=== PATIENT | male | born 2000 | race Caucasian/White ===

== ENCOUNTER 2019-04-20 09:44 | Emergency (ER) | payer SELFPAY ==
[2019-04-20 10:33] VITALS: BP 146/83; PULSE 67; RESP 16; TEMP 36.6; O2SAT 99; BMI 28.7
[2019-04-20] MEDS: dexamethasone 10 mg/mL INJ IM (15:26)
[2019-04-20] MEDS: ketorolac 30 mg/mL INJ IM (15:26)
[2019-04-20 15:27] VITALS: BP 111/68; PULSE 66; RESP 14; TEMP 36.6; O2SAT 98
--- NOTE | 2019-04-20 15:35 | W.ED.BACK ---
HPI - Back Pain/Injury General: Chief Complaint: Back Pain/Injury Stated Complaint: BACK PAIN Time Seen by Provider: 04/20/19 14:55 Source: patient Mode of arrival: ambulatory Limitations: no limitations History of Present Illness: MD elicited complaint: back pain Onset (ago): week(s) (2) Timing: constant Similar Symptoms Previously: Yes Quality: burning and spasming Location: lumbar spine Radiation: none Exacerbating factors: movement Relieving factors: none Associated symptoms: Reports no associated symptoms; Deny abdominal pain, arthralgias, chills, change in bowel habits, difficulty walking, dysuria, fatigue, fecal incontinence, fever(s), numbness, tingling/numbness/burning or weakness Work related injury: No Review of Systems Const: Denies: fever, chills or fatigue Eyes: Denies: change in vision ENMT: Denies: throat pain Card: Denies: chest pain or palpitations Resp: Denies: shortness of breath, productive cough, non-productive cough, wheezing, stridor or pain on inspiration GI: Denies: abdominal pain, fecal incontinence or change in bowel habits : Denies: flank pain, difficulty urinating or painful urination Musc: Reports: back pain Skin/Breast: Denies: rash Neuro: Denies: headache, numbness in extremities, weakness in extremities, changes in sensation, lack of coordination, difficulty walking, frequent falls, dizziness, vertigo, confusion or behavioral changes Psych: Denies: anxiety, suicidal ideation or homicidal ideation PFSH ED PFSH: Statuses (acute, chronic, etc) shown below reflect problem list status as previously entered and may not be historically accurate Social History Smoking and tobacco status: never smoked Physical Exam Const: COMMON NORMALS: no apparent distress and no limitations HENMT: COMMON NORMALS: normocephalic and head/scalp atraumatic HEAD & SCALP: normocephalic and atraumatic FACE & SINUS: normal facial exam Neck/C-Spine: COMMON NORMALS: full ROM and no lymphadenopathy Resp: COMMON NORMALS: normal respiratory effort, no retractions, no use of accessory muscles and clear to auscultation bilaterally AUSCULTATION: clear to auscultation bilaterally Cardio: COMMON NORMALS: regular rate and regular rhythm RATE: regular rate RHYTHM: regular rhythm : COMMON NORMALS: Yes no CVA tenderness BLADDER/KIDNEY EXAM: Yes no CVA tenderness Back/Pelvis: COMMON NORMALS: no CVA tenderness LUMBAR SPINE/LOWER BACK: Yes pain with ROM and Yes lumbar spinal tenderness (diffuse no midline tenderness) Extremity: COMMON NORMALS: normal to inspection Psych: COMMON NORMALS: mental status grossly normal Skin: COMMON NORMALS: no rashes or lesions noted GENERAL SKIN EXAM: no rashes or lesions noted Course ED course: Pt is well appearing non toxic and in no distress. CAUTI considered for low back sanchez. Pt has no urinary symptoms no penile discharge. Pt denies any trauma or injury. Pt denies fever, histroy of cancer or hypertension denies IV drug abuse. Pt states he lifts heavy items at work and feels like he strained a muscle. Pt has no referred pain no numbness or tingling no loss of bowel or bladder. Pts physical exam findings are c/w lumbar strain. I will give patient Decadron and toradol here in the ER and send home with NSAIDS and muscle relaxer. REturn preautions advised and home care reveiwed. Vital Signs: Vital signs: Vital Signs Temperature 97.9 F 04/20/19 15:45 Pulse Rate 76 04/20/19 15:45 Respiratory Rate 14 04/20/19 15:45 Blood Pressure 110/70 04/20/19 15:45 Pulse Oximetry 98 04/20/19 15:45 Discharge Plan Discharge Patient Disposition: Home, Self-Care Clinical Impression: Strain of lumbar region Qualifiers: Encounter type: initial encounter Qualified Code(s): S39.012A - Strain of muscle, fascia and tendon of lower back, initial encounter Condition: Stable Prescriptions: New cyclobenzaprine 10 mg tablet 10 mg PO BID PRN (Reason: muscle spasm) Qty: 14 RF: 0 naproxen sodium 550 mg tablet 550 mg PO BID Qty: 14 RF: 0 Discharge Diet: Advance as tolerated Discharge Activity: Limit activity as instructed Patient Instructions: Low Back Strain (ED) Activity Restrictions/Additional Instructions: Limited Bending or twisting and no lifting over 20 pounds for 2 weeks Please return to ER with any numbness or tingling loss of bowel or bladder, fever or any other concerning symptoms Take meds as directed Please no driving or operating heavy machinery while taking meds Discharge Date/Time: 04/20/19 15:46 Coding Level of Care Code ED [facility] for [facility] Fwd Exam Problem Focused
[2019-04-20 15:45] VITALS: BP 110/70; PULSE 76; RESP 14; TEMP 36.6; O2SAT 98
== END 2019-04-20 15:46 | disposition home or self-care (01) ==
PROVIDERS: Emergency Provider Registered Nurse
DX: S39.012A Strain of muscle, fascia and tendon of lower back, initial encounter (principal); X58.XXXA Exposure to other specified factors, initial encounter
CPT/HCPCS: 96372; 99281; 99283; J1100; J1885